=== PATIENT | male | born 1990 | race Caucasian/White ===

== ENCOUNTER 2021-08-30 12:11 | Emergency (ER) | payer OTHER, SELFPAY ==
[2021-08-30 12:23] VITALS: BP 147/86; PULSE 99; RESP 18; TEMP 36.4; O2SAT 97
--- NOTE | 2021-08-30 12:35 | ED.URI ---
HPI - URI/Sore Throat General Chief Complaint: Upper Respiratory Infection Stated Complaint: Sore throat/blisters Time Seen by Provider: 08/30/21 12:35 Source: patient Mode of arrival: ambulatory Limitations: no limitations History of Present Illness HPI Narrative: Mario Grijalva is a 31 yo male with a PMH of gout and high blood pressure comes to [facility] with complaints of fever for the last day and sore throat he states that the has had blisters on his hands and feet in the back of his throat and that his young son had zmzp-dtnw-nkm-mouth disease earlier this week Related Data Allergies Allergy/AdvReac Type Severity Reaction Status Date / Time No Known Allergies Allergy Unknown Verified 08/30/21 13:31 Review of Systems Review of Systems: CONSTITUTIONAL: Denies fever, chills, sweats. EYES: Denies visual changes, redness, discharge. ENT: Denies rhinorrhea, congestion, has sore throat, otalgia. CARDIOVASCULAR: Denies chest pain, palpitations, edema. RESPIRATORY: Denies dyspnea, wheezing, cough GASTROINTESTINAL: Denies abdominal pain, nausea, vomiting, diarrhea. GENITOURINARY: Denies dysuria, hematuria, abnormal discharge SKIN: Denies rash or itching. States have blisters on hands and feet, but NEUROLOGIC: Denies numbness, or focal weakness. PSYCHIATRIC: Denies anxiety or depression. PMFSH Past Medical History Medical History Gout High blood pressure Social History Social History Smoking status: Former smoker Smoking end date: 11/08/16 Alcohol intake: current Comments At time of signature, I agree with nursing past medical, surgical, social and family history. There is no relevant family history pertinent to the presenting complaint. Exam Narrative: GENERAL: This is a well-nourished, well-developed patient, in mild distress. HEAD: normocephalic, atraumatic. EYES: Sclera clear/white. Vision is grossly intact. EARS: External ears normal, auditory canals clear and without drainage, TMs normal without perforation. Hearing grossly intact. NOSE: External nose normal without nasal discharge, nares without redness, no rhinorrhea. THROAT: Mucous membranes moist, posterior pharynx erythema with some exudate NECK: Neck supple, non-tender CARDIOVASCULAR: Regular rate and rhythm without murmurs, gallops, or rubs. RESPIRATORY: Clear to auscultation. Breath sounds equal bilaterally. No wheezes, rales, or rhonchi. GASTROINTESTINAL: Abdomen soft, non-tender, SKIN: warm, intact with no suspicious lesions or rash, good texture and turgor. Small blisters on hands and states he has been on feet also NEURO: awake, alert, and oriented to person, place and time. There were no obvious focal neurologic abnormalities. Steady gait EXTREMITIES: Normal range of motion. BACK: Nontender without deformity Course Course Emergency Course: Patient comes with fever and sore throat for [facility] and also had a few blisters on hands and feet after son was diagnosed last week with plpp-vzri-nmh-mouth disease and mother had strep last week Strep test appears negative based on physical exam we will treat with amoxicillin, Cepacol loss injures, fever control Vital Signs Vital signs: Vital Signs Temperature 97.6 F 08/30/21 12:23 Pulse Rate 99 08/30/21 12:23 Respiratory Rate 18 08/30/21 12:23 Blood Pressure 147/86 H 08/30/21 12:23 Pulse Oximetry 97 08/30/21 12:23 Temperature 97.6 F 08/30/21 12:23 Pulse Rate 99 08/30/21 12:23 Respiratory Rate 18 08/30/21 12:23 Blood Pressure 147/86 H 08/30/21 12:23 Pulse Oximetry 97 08/30/21 12:23 MDM - URI/Sore Throat Differential Diagnosis Differential diagnosis: Likely upper respiratory infection, otitis media, sinusitis, viral infection and pharyngitis Lab Data Labs: Strep Screen Presumptive Negative *(
== END 2021-08-30 12:54 | disposition home or self-care (01) ==
PROVIDERS: Emergency Provider Nurse Practitioner; PCP Family Medicine
DX: B34.9 Viral infection, unspecified (principal); J02.9 Acute pharyngitis, unspecified; M10.9 Gout, unspecified; I10 Essential (primary) hypertension; F17.200 Nicotine dependence, unspecified, uncomplicated
CPT/HCPCS: 87081; 87880; 99213; G0463

== ENCOUNTER 2022-08-10 15:36 | Outpatient (CLI) | payer OTHER, SELFPAY ==
[2022-08-10 20:13] LABS: LDL Cholesterol Direct 99 mg/dL
[2022-08-10 20:28] LABS: Alanine Aminotransferase 48 U/L (6-50); Albumin Level 4.7 g/dL (3.5-5.1); Alkaline Phosphatase 75 U/L (38-126); Anion Gap 17 mmol/L (8-16); Aspartate Amino Transferase 44 U/L (17-59); Bilirubin,Total 0.6 mg/dL (0.2-1.3); Blood Urea Nitrogen 16 mg/dL (9-20); Calcium 9.5 mg/dL (8.4-10.2); Carbon Dioxide 26 mmol/L (22-30); Chloride 98 mmol/L (98-107); Cholesterol 170 mg/dL (0-200); Estimated Glomerular Filt Rate > 60; Glucose 100 mg/dL (65-110); HDL Direct 33 mg/dL; Sodium 141 mmol/L (137-145); Triglycerides 171 mg/dL (<150); Uric Acid 6.4 mg/dL (3.5-8.5)
[2022-08-10 21:15] LABS: Hemoglobin A1C 5.3 % (<5.7)
== END 2022-08-10 15:37 | disposition home or self-care (01) ==
LOC: ANHGOSHLAB 15:37
PROVIDERS: PCP Family Medicine; Visit Provider Family Medicine
DX: E79.0 Hyperuricemia without signs of inflammatory arthritis and tophaceous disease (principal); Z13.220 Encounter for screening for lipoid disorders; I10 Essential (primary) hypertension; E66.01 Morbid (severe) obesity due to excess calories
CPT/HCPCS: 36415; 80053; 80061; 83036; 84550

== ENCOUNTER 2023-02-19 08:07 | Outpatient (CLI) | payer OTHER, SELFPAY ==
--- NOTE | 2023-03-17 10:59 | WPDSLEEPSTUD ---
Sleep Study Date of Study: 02/19/23 Ordering Provider: Michael Pena DO Interpreting Physician: Pao Denis MD Sleep Study Type: Split Polysomnogram Height: 1.83 m Weight: 185.973 kg Body Mass Index: 55.5 Neck Circumference (inches): 18 [place]: 17 Reason for Sleep Study Hypersomnolence Sleep History Mario Grijalva is a 32-year-old man who states that his observes him having apnea during sleep. He rarely awakens from sleep feeling short of breath. He rarely awakens at night with heartburn, belching or coughing. He always snores loudly enough that she complains. He rarely has trouble sleeping with a cold. He rarely gasps for breath at night. He always has breathing problems at night a according to his . He frequently sweats excessively at night and frequently notices his heart pounding or beating irregularly at night. He occasionally falls asleep during the day, rarely falls asleep involuntarily and rarely falls asleep while driving. He does not have loss of muscle tone with strong emotion. He does not have daytime difficulties due to excessive sleepiness. He does not feel paralyzed on waking or falling asleep. He does not have vivid dreamlike scenes on waking or falling asleep. He does not feel afraid to go to sleep. He rarely has nightmares, rarely remembers his dreams, rarely has racing thoughts. He rarely has feelings of sadness, depression or anxiety. He rarely has muscular tension. He does not notice parts of his body jerking. He rarely kicks at night and rarely has crawling or aching feelings in his legs. He does not have any kind of leg pain at night. He does not have morning jaw pain. He does not grind his teeth during sleep. He occasionally is bothered by pain during the day and occasionally awakened by pain at night. He frequently wakes up feeling stiff in the morning. Does not wake up with sore achy muscles. He occasionally wakes up with pain in the neck and spine. Normal bedtime is 11:00 p.m. falling asleep within 5 minutes. He will typically wake 6-10 times during the night, staying awake for 30 seconds up to a minute. He turns over in returns to sleep. Does not mention whether not he has nocturia. He wakes the morning at 5:00 a.m.. He does not take naps in the afternoon or evening. A short nap is never refreshing. He is drowsy for 2 hours after waking. He feels better in the morning compared to other times of day. He has gained 15 lb in last year. Habits: Quit tobacco 4 years ago. He uses smokeless tobacco. [facility] Past Medical History Medical History Gout High blood pressure Social History Social History Smoking status: Former smoker Smoking end date: 11/08/16 Alcohol intake: current Substance use: never Lack of Transportation: No Lack of Food: Never True Current Housing: I Have Housing Concerned About Future Housing: No Difficulty Paying Gas/Electric Bills: No Difficulty Paying for Meds: No Currently Unemployed: No Difficulty w/ Childcare or Family Care: No Medications Home Medications Medication Instructions Recorded Confirmed Type allopurinol 300 mg tablet 300 mg PO DAILY #90 tabs 01/18/23 02/08/23 Rx lisinopril 20 mg tablet 20 mg PO DAILY #90 tabs 01/18/23 02/08/23 Rx semaglutide 0.25 mg or 0.5 mg (2 0.5 mg (0.8 mL) subcut WEEKLY #3 mL 03/08/23 Rx mg/3 mL) subcutaneous pen injector Sleep Procedure This test was performed using the [email or web address] multiple channel system including EOG, EEG, submental EMG, EKG, nasal and oral airflow using thermistors and nasal pressure sensors, chest and abdominal belts for body position data, and pulse oximetry. Video monitoring was also performed. The study was scored using CMS guidelines. After the baseline portion the patient met criteria for a titration with an apnea hypopnea
[2023-03-17 11:16] VITALS: BMI 55.5
== END 2023-02-20 05:02 | disposition home or self-care (01) ==
LOC: ANHCSM 08:08
PROVIDERS: PCP Family Medicine; Visit Provider Family Medicine
DX: G47.33 Obstructive sleep apnea (adult) (pediatric) (principal); R53.83 Other fatigue; I10 Essential (primary) hypertension; Z87.891 Personal history of nicotine dependence
CPT/HCPCS: 95811

== ENCOUNTER 2023-10-21 08:00 | Outpatient (CLI) | payer OTHER, SELFPAY ==
[2023-10-21 20:03] LABS: Alanine Aminotransferase 42 U/L (6-50); Albumin Level 4.6 g/dL (3.5-5.1); Alkaline Phosphatase 71 U/L (38-126); Anion Gap 6 mmol/L (8-16); Aspartate Amino Transferase 30 U/L (17-59); Bilirubin,Total 0.8 mg/dL (0.2-1.3); Blood Urea Nitrogen 13 mg/dL (9-20); Calcium 9.7 mg/dL (8.4-10.2); Carbon Dioxide 31 mmol/L (22-30); Chloride 102 mmol/L (98-107); Estimated Glomerular Filt Rate > 60; Glucose 98 mg/dL (65-110); Potassium 4.7 mmol/L (3.4-5.0); Sodium 139 mmol/L (137-145)
== END 2023-10-21 08:01 | disposition home or self-care (01) ==
LOC: ANHGOSHLAB 08:01
PROVIDERS: PCP Family Medicine; Visit Provider Nurse Practitioner
DX: R42 Dizziness and giddiness (principal)
CPT/HCPCS: 36415; 80053

== ENCOUNTER 2023-12-08 08:13 | Outpatient (CLI) | payer OTHER, SELFPAY ==
--- NOTE | ~2023-12-08 | CT_ITS ---
EXAMINATION: CTA brain carotid DATE: 12/08/2023 09:03 INDICATION: Dizziness and giddiness. TECHNIQUE: Computed tomographic angiography (CTA) of the head was performed without and with 100 mL O mnipaque-350 intravenous contrast. CTA of the neck was performed with intravenous contrast. Automated exposure control and iterative reconstruction technique were employed. The dose-length product was 1 882.63 mGy-cm. Maximum intensity projection and volume rendered 3D-reconstructions were created by megan segovia technologist on a separate workstation. COMPARISON: None. FINDINGS: HEAD CTA: There is no intracranial hemorrhage, acute infarction, or abnormal intracranial mass lesion . The ventricles are normal in size. The orbits are normal. There is mucosal thickening in the [place] sinuses. The mastoid air cells are normal. The vertebral arteries are codominant. There is no sig nificant stenosis of basilar artery or the posterior cerebral arteries. The posterior communicating a rteries are normal. There is no significant stenosis of the intracranial internal carotid arteries or anterior or middle cerebral arteries. Anterior to indicating artery is normal. There is no aneurysm. NECK CTA: There are no pathologically enlarged lymph nodes. There is no significant stenosis of the v ertebral arteries. There is no visible plaque in the proximal internal carotid arteries. There is 0% stenosis of the proximal right internal carotid artery relative to normal distal artery lumen diamete r (NASCET criteria). There is 0% stenosis of the proximal left internal carotid artery relative to no rmal distal artery lumen diameter. There is mild cervical spondylosis. Osseous central spinal canal i s developmentally small. IMPRESSION: 1. Normal brain. No aneurysm or significant intracranial arterial stenosis. 2. 0% stenosis of the proximal internal carotid arteries relative to normal distal artery lumen diame ters (NASCET criteria). Reviewed, dictated and finalized at location A. SANDER IMPRESSION: 1. Normal brain. No aneurysm or significant intracranial arterial stenosis. 2. 0% stenosis of the proximal internal carotid arteries relative to normal dis fausto artery lumen diameters (NASCET criteria).
[2023-12-08 08:33] LABS: Estimated Glomerular Filt Rate > 60
== END 2023-12-08 08:14 ==
LOC: MICIMG 08:13
PROVIDERS: PCP Family Medicine; Visit Provider Nurse Practitioner
DX: R42 Dizziness and giddiness (principal)
CPT/HCPCS: 70496; 70498; Q9967